=== PATIENT | female | born 1945 | race Caucasian/White ===

== ENCOUNTER 2016-12-28 12:24 | Outpatient (CLI) | payer MEDICARE ==
[2016-12-28 13:10] LABS: #Basophils 0.1 thou/uL (0.0-0.2); #Eosinphils 0.4 thou/uL (0.0-0.7); #Monocytes 0.5 thou/uL (0.11-0.59); %Basophils 1.2 % (0.0-1.0); %Eosinophils 4.8 % (0.0-10.0); %Lymphocytes 33.2 % (21.0-51.0); %Monocytes 5.9 % (0.0-10.0); %Neutrophils 54.9 % (42.0-75.0); Hemoglobin 14.9 g/dL (12.0-16.0); Mean Corpuscular HGB CONC 32.8 g/dL (32.0-36.0); Mean Corpuscular Hemoglobin 29.4 pg (27.0-31.0); Mean Corpuscular Volume 89.7 fl (81.0-99.0); Mean Platelet Volume 7.7 fL (7.4-10.4); Platelet Count 299 thou/uL (130-400); RBC Distribution Width 12.6 % (11.5-14.5); Red Blood Cell (RBC) Count 5.08 mill/uL (4.20-5.40); White Blood Cell (WBC) Count 9.1 thou/uL (4.8-10.8)
[2016-12-28 13:17] LABS: ALT (SGPT) 16 U/L (0-55); AST (SGOT) 16 U/L (5-34); Albumin 4.2 g/dL (3.4-4.8); Alkaline Phosphatase 56 U/L (40-150); Anion Gap 13 mmol/L (10-20); BUN (Urea Nitrogen) 12 mg/dL (9.8-20.1); Bilirubin, Total 0.9 mg/dL (0.2-1.2); Calc. Creatinine Clearance 0 mL/min (70-130); Calcium 9.1 mg/dL (7.8-10.44); Carbon Dioxide 27 mmol/L (23-31); Cardiac Risk 2.8 (Less than 4.5); Chloride 105 mmol/L (98-107); Cholesterol 127 mg/dL (< 200 Desired); Estimated GFR-MDRD 66; Globulin 2.8 g/dL (2.4-3.5); Glucose 90 mg/dL (80-115); HDL Cholesterol 45 mg/dL (>60 Neg Risk); LDL Cholesterol, Calculated 69 mg/dL; Potassium 4.3 mmol/L (3.5-5.1); Sodium 141 mmol/L (136-145); Triglycerides 64 mg/dL (Less than 150)
== END 2016-12-28 12:25 ==
LOC: HPCALD 12:24
PROVIDERS: ATTEND Family Medicine
DX: E03.9 Hypothyroidism, unspecified (principal); E78.2 Mixed hyperlipidemia
CPT/HCPCS: 36415; 80053; 80061; 84443; 85025

== ENCOUNTER 2017-06-05 16:14 | Outpatient (CLI) | payer MEDICARE ==
[2017-06-05 17:24] LABS: #Basophils 0.1 thou/uL (0.0-0.2); #Eosinphils 0.2 thou/uL (0.0-0.7); #Lymphocytes 2.3 thou/uL (1.20-3.40); #Monocytes 0.8 thou/uL (0.11-0.59); #Neutrophils 4.1 thou/uL (1.40-6.50); %Basophils 0.8 % (0.0-1.0); %Eosinophils 2.8 % (0.0-10.0); %Lymphocytes 30.5 % (21.0-51.0); %Monocytes 11.1 % (0.0-10.0); %Neutrophils 54.8 % (42.0-75.0); Hemoglobin 14.4 g/dL (12.0-16.0); Mean Corpuscular Hemoglobin 30.9 pg (27.0-31.0); Mean Corpuscular Volume 93.4 fl (81.0-99.0); Mean Platelet Volume 8.8 fL (7.4-10.4); Platelet Count 182 thou/uL (130-400); RBC Distribution Width 11.7 % (11.5-14.5); Red Blood Cell (RBC) Count 4.68 mill/uL (4.20-5.40); White Blood Cell (WBC) Count 7.4 thou/uL (4.8-10.8)
[2017-06-05 18:24] LABS: ALT (SGPT) 37 U/L (8-55); AST (SGOT) 28 U/L (5-34); Albumin 4.3 g/dL (3.4-4.8); Alkaline Phosphatase 106 U/L (40-150); Anion Gap 14 mmol/L (10-20); BUN (Urea Nitrogen) 13 mg/dL (9.8-20.1); Bilirubin, Total 0.3 mg/dL (0.2-1.2); Calc. Creatinine Clearance 0 mL/min (70-130); Calcium 9.4 mg/dL (7.8-10.44); Carbon Dioxide 29 mmol/L (23-31); Chloride 100 mmol/L (98-107); Estimated GFR-MDRD 72; Globulin 2.6 g/dL (2.4-3.5); Glucose 78 mg/dL (80-115); Potassium 4.1 mmol/L (3.5-5.1); Protein, Total 6.9 g/dL (6.0-8.3); Sodium 139 mmol/L (136-145)
== END 2017-06-05 16:15 | disposition home or self-care (01) ==
LOC: HPCALD 16:14
PROVIDERS: ATTEND Family Medicine
DX: I10 Essential (primary) hypertension (principal); R42 Dizziness and giddiness
CPT/HCPCS: 80053; 82607; 84443; 85025

== ENCOUNTER 2019-01-17 12:40 | Outpatient (CLI) | payer MEDICARE ==
--- NOTE | 2019-01-17 20:06 | ULT ---
LEFT LOWER EXTREMITY VENOUS ULTRASOUND 01/17/19 Color duplex Doppler ultrasonography of the left lower extremity was performed. All deep veins were f reely compressible from groin to ankle. No echogenic clot was seen. There was normal Doppler response to augmentation maneuvers. Regarding the popliteal fossa, there was no evidence of cyst or aneurysm. IMPRESSION: 1. No evidence of DVT. 2. No evidence of a Marquez's cyst. POS: HOME
== END 2019-01-17 12:41 | disposition home or self-care (01) ==
LOC: BURULT 12:40
PROVIDERS: ATTEND Family Medicine
DX: M79.605 Pain in left leg (principal)

== ENCOUNTER 2019-01-24 16:57 | Outpatient (CLI) | payer MEDICARE ==
--- NOTE | 2019-01-24 20:30 | RAD ---
LEFT KNEE FOUR VIEWS: 01/24/19 No fracture, dislocation or joint effusion was seen. The joint space appears normal. IMPRESSION: No acute findings. POS: HOME
== END 2019-01-24 16:58 | disposition home or self-care (01) ==
LOC: BURRAD 16:57
PROVIDERS: ATTEND Family Medicine
DX: M25.562 Pain in left knee (principal)